=== PATIENT | female | born 1975 | race Caucasian/White ===

== ENCOUNTER 2024-11-13 11:18 | Emergency (ER) | payer OTHER | END 2024-11-13 14:30 | disposition home or self-care (01) | LOC: DL.ED 11:18 | DX: S99.912A Unspecified injury of left ankle, initial encounter (principal); W10.8XXA Fall (on) (from) other stairs and steps, initial encounter; Y93.89 Activity, other specified | CPT/HCPCS: 73610-LT; 73610-RT; 73630-LT; 73630-RT; 99283 ==